=== PATIENT | male | born 1985 | race African-American/Black ===

== ENCOUNTER 2023-04-04 10:36 | Emergency (ER) | payer MEDICAID ==
[~2023-04-04] VITALS: Ht 190.5 cm; Wt 113.4 kg
[2023-04-04 10:48] VITALS: BP_SYST 185; PULSE 65; O2SAT 96
[2023-04-04] MEDS ORDERED: KETOROLAC TROMETHAMINE 30 MG VIAL IVP ONE (11:00)
[2023-04-04 11:17] LABS: BASOPHILS # (AUTO) 0.1 K/uL (0.0-0.2); EOSINOPHILS # (AUTO) 0.1 K/uL (0.0-0.4); EOSINOPHILS % (AUTO) 1.5 % (0.0-4.0); LYMPHOCYTES % (AUTO) 24.6 % (20.5-51.5); MEAN CORPUSCULAR HEMOGLOBIN 30 pg (27-31); MEAN CORPUSCULAR HGB CONC 33 % (32-36); MEAN CORPUSCULAR VOLUME 88 fL (79.0-98.0); MONOCYTES # (AUTO) 0.9 K/uL (0.0-1.0); MONOCYTES % (AUTO) 11.2 % (1.7-9.3); NEUTROPHILS # (AUTO) 4.9 K/uL (1.8-7.7); NEUTROPHILS % (AUTO) 61.7 % (40.0-70.0); PLATELET COUNT (AUTO) 116 K/uL (130-430); RED BLOOD CELL COUNT(AUTO) 5.08 MIL/uL (4.2-6.2); RED CELL DISTRIBUTION WIDTH 13.5 % (9.0-15.0); WHITE BLOOD COUNT (AUTO) 7.9 K/uL (4.8-10.8)
[2023-04-04 11:28] LABS: ANION GAP 5 (5-15); CALCIUM 9.3 mg/dL (8.4-11.0); CARBON DIOXIDE 28 mmol/L (23-29); CHLORIDE 105 mmol/L (98-107); CREATININE 1.26 mg/dL (0.55-1.30); GFR AFRICAN AMERICAN 82 mL/min (>90); GLUCOSE 92 mg/dL (74-106); POTASSIUM 3.9 mmol/L (3.5-5.1); SODIUM SERUM 138 mmol/L (136-145); UREA NITROGEN, BLOOD 13 mg/dL (8-21)
[2023-04-04 11:29] LABS: GFR NON AFRICAN-AMERICAN 68 mL/min (>90)
[2023-04-04 11:30] VITALS: BP_SYST 131; PULSE 80; RESP 20; TEMP 98.1; O2SAT 98
[2023-04-04] MEDS ORDERED: traMADol HCL HCL 50 MG TABLET (ULTRAM) PO ONE (12:15)
[2023-04-04] MEDS ORDERED: NAPR-688 PO (13:22)
== END 2023-04-04 13:20 | disposition home or self-care (01) ==
LOC: SED 10:36
DX: R07.89 Other chest pain (principal); I11.0 Hypertensive heart disease with heart failure; I50.9 Heart failure, unspecified; Z79.899 Other long term (current) drug therapy
CPT/HCPCS: 99285; 96374; 71045; 80048; 83880; 85025; 84484; 36415; 93005; J1885